=== PATIENT | male | born 1975 | race Caucasian/White ===

== ENCOUNTER 2019-04-08 22:07 | Emergency (ER) | payer MEDICAID ==
[~2019-04-08] VITALS: Ht 185.4 cm; Wt 90.9 kg
[~2019-04-08 22:07] MED LIST: HYDR-4383 PO
[2019-04-08] MEDS ORDERED: acetaminophen 325mg tablet PO STA (22:29)
[2019-04-08] MEDS ORDERED: ibuprofen tablet 400 MG TABLET PO STA (22:29)
--- NOTE | 2019-04-08 22:33 | NUR ---
pt to xray
[2019-04-08] MEDS ORDERED: albuterol 2.5 MG/3 ML nebule NEB ONE (22:50)
[2019-04-08] MEDS ORDERED: normal saline 1000ML IV soln IV ONE (22:50)
[2019-04-08 23:05] LABS: BASOPHILS # (AUTO) 0.1 X10'3 (0-0.2); BASOPHILS % (AUTO) 0.6 % (0-1); EOSINOPHILS # (AUTO) 0.1 X10'3 (0-0.9); EOSINOPHILS % (AUTO) 1.5 % (0-6); HEMATOCRIT 45.8 % (42.0-52.0); HEMOGLOBIN 15.8 g/dl (14.0-17.9); LYMPHOCYTES # (AUTO) 1.2 X10'3 (1.1-4.8); LYMPHOCYTES % (AUTO) 13.9 % (21-51); MEAN CORPUSCULAR HEMOGLOBIN 30.8 PG (27.0-31.0); MEAN CORPUSCULAR HGB CONC 34.5 g/dL (33.0-36.5); MEAN CORPUSCULAR VOLUME 89.1 FL (78-98); MEAN PLATELET VOLUME 7.7 FL (7.4-10.4); MONOCYTES # (AUTO) 0.8 X10'3 (0-0.9); MONOCYTES % (AUTO) 9.4 % (2-12); NEUTROPHILS # (AUTO) 6.3 X10'3 (1.8-7.7); NEUTROPHILS % (AUTO) 74.6 % (42-75); PLATELET COUNT 271 X10'3 (140-440); RED BLOOD COUNT 5.14 X10'6 (4.70-6.10); RED CELL DISTRIBUTION WIDTH 12.9 % (11.5-14.5); WHITE BLOOD COUNT 8.4 X10'3 (4.5-11.0)
[2019-04-08 23:22] LABS: ALANINE AMINOTRANSFERASE 30 U/L (12-78); ALBUMIN/GLOBULIN RATIO 0.9 (1.1-1.5); ALKALINE PHOSPHATASE 76 IU/L (46-116); ANION GAP 7 (8-16); ASPARTATE AMINO TRANSFERASE 25 U/L (10-37); BILIRUBIN,TOTAL 0.3 MG/DL (0.1-1.0); BLOOD UREA NITROGEN 10 MG/DL (7-18); BUN/CREATININE RATIO 9.8 (5.4-32.0); CALCIUM 8.6 MG/DL (8.5-10.1); CHLORIDE 102 MMOL/L (99-107); CREATININE 1.02 MG/DL (0.60-1.10); GLUCOSE 110 MG/DL (70-104); POTASSIUM 3.9 MMOL/L (3.5-5.1); SODIUM 137 MMOL/L (135-145); TOTAL CARBON DIOXIDE 28.2 MMOL/L (24-32); TOTAL PROTEIN 8.3 G/DL (6.4-8.2); eGFR 80 ML/MIN
[2019-04-08] MEDS ORDERED: levoFLOXACIN 750MG TABLET PO ONE (23:35)
[2019-04-09] MEDS ORDERED: albuterol 2.5 MG/3 ML nebule NEB ONE (00:55)
[2019-04-09] MEDS ORDERED: LEVO750T21 PO (01:11)
[2019-04-09] MEDS ORDERED: ALBU18HF2 INH (01:11)
[2019-04-09 01:22] VITALS: BP 134/55
== END 2019-04-09 01:24 | disposition home or self-care (01) ==
LOC: ER 22:07
DX: J18.9 Pneumonia, unspecified organism (principal); R19.7 Diarrhea, unspecified; I10 Essential (primary) hypertension; G89.29 Other chronic pain; F41.9 Anxiety disorder, unspecified
CPT/HCPCS: 36415; 71046; 80053; 83605; 84145; 85025; 87040; 87502; 87503; 94640; 94760; 96360; 96361; 99284; J7030

== ENCOUNTER 2020-09-20 18:36 | Emergency (ER) | payer MEDICAID ==
[~2020-09-20] VITALS: Ht 188 cm; Wt 100.0 kg
[~2020-09-20 18:36] MED LIST changes: +ALBU18HF2 INH
[2020-09-20 19:04] VITALS: BP 140/88
== END 2020-09-20 20:15 | disposition home or self-care (01) ==
LOC: ER 18:36
DX: Z02.89 Encounter for other administrative examinations (principal); R22.9 Localized swelling, mass and lump, unspecified; I10 Essential (primary) hypertension; G89.29 Other chronic pain; F41.9 Anxiety disorder, unspecified; Z98.890 Other specified postprocedural states; Z79.899 Other long term (current) drug therapy
CPT/HCPCS: 99281

== ENCOUNTER → 2020-12-13 | Emergency (ER) | payer MEDICAID ==
[~2020-12-13] VITALS: Ht 188 cm; Wt 100.0 kg
[2020-12-13 14:11] VITALS: BP 129/77
== END | disposition left against medical advice (07) ==
LOC: ER 13:59
DX: M25.561 Pain in right knee (principal); Z53.21 Procedure and treatment not carried out due to patient leaving prior to being seen by health care provider

== ENCOUNTER 2021-02-28 08:40 | Emergency (ER) | payer MEDICAID ==
[~2021-02-28] VITALS: Ht 188 cm; Wt 100.0 kg
[2021-02-28 08:42] VITALS: BP 152/92
[2021-02-28] MEDS ORDERED: SULF1TAB45 PO (09:43)
[2021-02-28] MEDS ORDERED: sulfamethoxazole/trimethoprim DS (800/160mg) tablet PO ONE (09:45)
== END 2021-02-28 09:53 | disposition home or self-care (01) ==
LOC: ER 08:41
DX: L08.9 Local infection of the skin and subcutaneous tissue, unspecified (principal); I10 Essential (primary) hypertension; G89.29 Other chronic pain; F41.9 Anxiety disorder, unspecified; Z98.890 Other specified postprocedural states; Z79.2 Long term (current) use of antibiotics; Z79.899 Other long term (current) drug therapy
CPT/HCPCS: 99283

== ENCOUNTER 2021-08-06 08:44 | Emergency (ER) | payer MEDICAID ==
[~2021-08-06] VITALS: Ht 188 cm; Wt 100.0 kg
[2021-08-06] MEDS ORDERED: PRED20TA PO (10:29)
[2021-08-06] MEDS ORDERED: AMOX-117 PO (10:29)
[2021-08-06] MEDS ORDERED: ALBU6.7H9 INH (10:29)
[2021-08-06 10:45] VITALS: BP 129/93
== END 2021-08-06 10:48 | disposition home or self-care (01) ==
LOC: ER 08:45
DX: J40 Bronchitis, not specified as acute or chronic (principal); Z20.822 Contact with and (suspected) exposure to COVID-19; J45.909 Unspecified asthma, uncomplicated; G89.29 Other chronic pain; F41.9 Anxiety disorder, unspecified; I10 Essential (primary) hypertension; Z79.899 Other long term (current) drug therapy
CPT/HCPCS: 71045; 87635; 99284; C9803; 96372

== ENCOUNTER 2021-08-09 18:36 | Emergency (ER) | payer MEDICAID ==
[~2021-08-09] VITALS: Ht 188 cm; Wt 100.0 kg
[~2021-08-09 18:36] MED LIST changes: +ALBU6.7H9 INH; +AMOX-117 PO; +PRED20TA PO
[2021-08-09 18:38] VITALS: BP 148/95
[2021-08-09] MEDS ORDERED: ketorolac trometh inj. 60 MG/2 ML VIAL IM ONE (19:55)
[2021-08-09] MEDS ORDERED: HYDR-3965 PO (19:56)
== END 2021-08-09 20:34 | disposition home or self-care (01) ==
LOC: ER 18:36
DX: R07.81 Pleurodynia (principal); R05.9 Cough, unspecified; M54.9 Dorsalgia, unspecified; I10 Essential (primary) hypertension; J45.909 Unspecified asthma, uncomplicated; G89.29 Other chronic pain; F41.9 Anxiety disorder, unspecified; Z98.890 Other specified postprocedural states; Z79.899 Other long term (current) drug therapy
CPT/HCPCS: 71046; 99283

== ENCOUNTER 2022-04-19 18:18 | Emergency (ER) | payer MEDICAID ==
[~2022-04-19] VITALS: Ht 188 cm; Wt 100.0 kg
[~2022-04-19 18:18] MED LIST changes: +ALBU6.7H14 INH; -ALBU6.7H9 INH; -AMOX-117 PO; -PRED20TA PO
[2022-04-19 18:36] VITALS: BP 156/137
[2022-04-19] MEDS ORDERED: ONDA4TAB12 PO (19:31)
[2022-04-19] MEDS ORDERED: ALBU8HFA PO (19:31)
[2022-04-19] MEDS ORDERED: [UNRECOGNIZED DRUG - CODE] PO (19:31)
[2022-04-19] MEDS ORDERED: AZIT-31 PO (19:31)
[2022-04-19] MEDS ORDERED: azithromycin 250mg tablet PO ONE (19:35)
[2022-04-19] MEDS ORDERED: ondansetron 4mg rapidly disintigrating tab PO ONE (19:35)
== END 2022-04-19 20:01 | disposition home or self-care (01) ==
LOC: ER 18:20
DX: J01.10 Acute frontal sinusitis, unspecified (principal); Z20.822 Contact with and (suspected) exposure to COVID-19; J98.8 Other specified respiratory disorders; J45.909 Unspecified asthma, uncomplicated; G89.29 Other chronic pain; F41.9 Anxiety disorder, unspecified; Z79.899 Other long term (current) drug therapy; Z79.1 Long term (current) use of non-steroidal anti-inflammatories (NSAID); Z79.2 Long term (current) use of antibiotics
CPT/HCPCS: 87502; 87503; 87635; 99283; C9803

== ENCOUNTER 2022-07-11 20:13 | Emergency (ER) | payer OTHER, MEDICAID ==
[~2022-07-11] VITALS: Ht 188 cm; Wt 100.0 kg
[~2022-07-11 20:13] MED LIST changes: +ONDA4TAB12 PO; +[UNRECOGNIZED DRUG - CODE] PO
[2022-07-11 20:25] VITALS: BP 177/109
[2022-07-11] MEDS ORDERED: ibuprofen 200mg tablet PO ONE (21:15)
== END 2022-07-11 22:33 | disposition home or self-care (01) ==
LOC: ER 20:13
DX: S90.01XA Contusion of right ankle, initial encounter (principal); X58.XXXA Exposure to other specified factors, initial encounter; Y93.89 Activity, other specified; Y92.89 Other specified places as the place of occurrence of the external cause; Y99.8 Other external cause status
CPT/HCPCS: 29515; 73610; 99283; L1930